=== PATIENT | female | born 1960 | race Caucasian/White ===

== ENCOUNTER 2016-04-27 22:43 | Emergency (ER) ==
--- NOTE | 2016-04-27 22:53 | ED EKG INTERP ---
EKG Interpretation - EKG Time of EKG reading by physician:: 22:52 EKG Read and Signed by:: Asim Westfall EKG Interpretation (*Must complete 3 of following elements*): Normal Rate: 85 Rhythm: Normal sinus rhythm Attestation - Scribe Verification/Attestation Scribe:: Servando Howell Acting as Scribe for:: Asim Westfall Scribe documention review:: This chart was documented by a scribe and accurately reflects the service the provider performed and the decisions made by the provider.
[2016-04-27] MEDS ORDERED: TORADOL IM ONE (23:09)
[2016-04-27 23:33] LABS: MANUAL DIFF NEEDED? NO
[2016-04-27 23:36] LABS: BASO% 0.6 % (0.0-0.8); EOS# 0.38 X1000 (0.0-0.7); EOS% 4.3 % (0.0-10.0); HEMATOCRIT 40.7 % (37.0-47.0); IMM GRAN# 0.02 X1000 (0.0-0.04); IMM GRAN% 0.2 % (0.0-0.5); LYMPH# 3.11 X1000 (1.2-3.4); LYMPH% 35.4 % (20.5-51.1); MCH 28.7 PG (27-31); MCHC 34.4 g/dL (33-37); MCV 83.6 FL (81-99); MONO# 1.12 X1000 (0.11-0.59); MONO% 12.8 % (1.7-9.3); MPV 9.2 FL (7.4-10.4); NEUT% 46.7 % (42.2-75.2); PLT 314 X1000 (130-400); RBC 4.87 XMIL (4.2-5.4)
[2016-04-27 23:48] LABS: AGAP 14; ALBUMIN 3.5 g/dL (3.5-5.0); ALKALINE PHOSPHATASE 74 U/L (32-104); BUN 16 mg/dL (8-22); CALCIUM 8.4 mg/dL (8.8-10.2); CHLORIDE 99 mmol/L (98-107); COSMO 280; GOT 25 U/L (10-30); GPT 41 U/L (10-36); POTASSIUM 3.7 mmol/L (3.5-5.1); SODIUM 136 mmol/L (136-145); TCO2 23 mmol/L (25-35); TOTAL BILIRUBIN 0.27 mg/dL (0.20-1.00); TOTAL PROTEIN 6.6 g/dL (6.3-8.3)
[2016-04-27 23:55] LABS: URINE CULTURE NEEDED? NO; URINE MICRO REVIEW NEEDED? NO; URINE SOURCE CLEAN CATCH
[2016-04-28 00:26] LABS: BILIRUBIN URINE NEGATIVE (NEGATIVE); BLOOD URINE NEGATIVE (NEGATIVE); COLOR YELLOW; GLUCOSE URINE 1000 mg/dL (NEGATIVE); LEUKOCYTES URINE NEGATIVE (NEGATIVE); NITRITE URINE NEGATIVE (NEGATIVE); PH URINE 6.5; PROTEIN URINE TRACE mg/dL (NEGATIVE); SP GRAVITY URINE 1.025; TURBIDITY URINE CLEAR (CLEAR); UROBILINOGEN URINE NORMAL (NORMAL)
[2016-04-28 00:27] LABS: UR EPITHELIAL CELLS <10 /HPF (<10); URINE BACTERIA NEGATIVE /HPF; URINE RBC <10 /HPF (<10); URINE WBC <10 /HPF (<10)
[2016-04-28] MEDS ORDERED: DECADRON IM ONE (00:33)
[2016-04-28] MEDS ORDERED: ROCEPHIN IM ONE (00:33)
[2016-04-28] MEDS ORDERED: XYLOCAINE-MPF 1% INJ ONE (00:33)
--- NOTE | 2016-04-28 00:40 | PROVIDER DOCUMENTATION ---
HPI-General Adult <James Reyes - Last Filed: 04/28/16 00:40> - General Source: patient - History of Present Illness -Gen Adult Nature of Presenting Problems: Pt is a 55 yof who presents to ER with CC of generalized bilateral upper extremity muscle aches. Pt reports that she had an URI 1 week ago and was treated with zethromax. Pt reports that she woke up this morning with bilateral pain in the joints of her upper extremities and generalized muscle aches. Pt has hx of fibromyalgia. Location of Pain/Injury: reports: upper extremity (Bilateral joint pain) Quality of Pain: reports: aching Severity: reports: mild Onset/Duration: reports: this morning Timing: reports: still present Associated Symptoms: reports: joint pain (Bilateral upper extremities), muscle aches <Servando Howell - Last Filed: 04/28/16 00:50> - General Chief Complaint: Generalized Pain Stated Complaint: CP, NECK/ARM/BACK PAIN Time Seen by Provider: 04/27/16 23:00 Allergies/Adverse Reactions: Patient Allergies Allergy/AdvReac Type Severity Reaction Status Date / Time No Known Allergies Allergy Verified 04/27/16 23:39 Home Medications: Glyburide 7.5 mg PO DAILY 08/14/14 LISINOpril [Prinivil] 10 mg PO DAILY 08/14/14 Milnacipran HCl [Savella] 25 mg PO DAILY 08/14/14 Omeprazole 20 mg PO DAILY 08/14/14 Review of Systems - Adult - REVIEW OF SYSTEMS - ADULT Constitutional: denies: chills, fever, fatique Eyes: reports: no symptoms reported Ears, Nose, Mouth & Throat: reports: no symptoms reported Cardiovascular: reports: no symptoms reported Respiratory: reports: no symptoms reported Gastrointestinal: reports: no symptoms reported Genitourinary: reports: no symptoms reported Musculoskeletal: reports: bone pain, joint pain, muscle aches, muscle weakness. denies: back pain, frequent leg cramps, joint swelling, neck pain Integumentary: reports: no symptoms reported Neurological: reports: no symptoms reported Psychiatric: reports: no symptoms reported Endocrine: reports: no symptoms reported Hematologic/Lymphatic: reports: no symptoms reported Allergic/Immunologic: reports: no symptoms reported All Other Systems: Reviewed and Negative <Servando Howell - Last Filed: 04/28/16 00:50> Past History - Adult - PAST MEDICAL HISTORY-ADULT Major Childhood Illnesses: reports: denies history Cardiovascular: reports: denies history Respiratory: reports: denies history Gastrointestinal: reports: GERD Obstetrical/Gynecological: reports: denies history Genitourinary: reports: denies history Musculoskeletal: reports: fibromyalgia Neurological: reports: denies history Psychiatric: reports: denies history Endocrine/Immune: reports: Diabetes Other Conditions: reports: other (seasonal allergies) - PRIOR SURGERIES/PROCEDURES Surgical/Procedure History: reports: - PRIOR HOSPITALIZATIONS Prior Hospitalizations: reports: for other non-related - IMMUNIZATION STATUS Childhood Immunizations: See Nurse Assessment Flu Vaccine: See Nurse Assessment - FAMILY HISTORY Family History: reviewed, not pertinent <James Reyes - Last Filed: 04/28/16 00:40> - PAST MEDICAL HISTORY-ADULT Review of Records: reports: Nursing Assessment Review, Medications Reviewed - IMMUNIZATION STATUS Childhood Immunizations: See Nurse Assessment Flu Vaccine: See Nurse Assessment <Servando Howell - Last Filed: 04/28/16 00:50> Physical Exam-General - PHYSICAL EXAM-ADULT Initial Vital Signs Reviewed: Yes - CONSTITUTIONAL General Appearance: appears well, alert, mild distress - NECK Neck: non-tender, full range of motion, supple - RESPIRATORY Respiratory: chest non-tender, lungs clear, normal breath sounds - CARDIOVASCULAR Cardiovascular: normal peripheral pulses, regular rate, rhythm - GASTROINTESTINAL (ABDOMEN) Abdominal Exam: normal bowel sounds, non tender, soft - LYMPHATIC Lymphatic: no adenopathy - MUSCULOSKELETAL Back Exam: no CVA tenderness, no vertebral tenderness Extremity: normal range of motion, non-tender, normal gait - SKIN Integumentary: normal color, normal turgor, warm/dry - NEUROLOGIC Neurologic: grossly normal, no motor/sensory deficits - PSYCHIATRIC Psych/Mental Status: normal mood/affect, normal thought content, normal thought process, oriented x 3 <Servando Howell - Last Filed: 04/28/16 00:50> Progress - PLAN OF CARE/RESULTS Progress/Plan/Lab Results: Orders Category Date Time Status CHEST-2 VIEWS [RAD] Stat Exams 04/27/16 23:08 Taken CBC WITH ELECTRONIC DIFF [HEME] Stat Lab 04/27/16 23:25 Completed COMPREHENSIVE METABOLIC PANEL [CHEM] Stat Lab 04/27/16 23:25 Completed INFLUENZA SCREEN A/B Stat Lab 04/27/16 22:51 Completed UA Reflex [URINALYSIS W/POSS RFLX CULT] [URINALYSIS] Lab 04/27/16 23:45 Completed Stat CefTRIAXONE [Rocephin] Med 04/28/16 00:33 Discontinued 1 gm IM NOW ONE Dexamethasone [Decadron] Med 04/28/16 00:33 Discontinued 10 mg IM NOW ONE Ketorolac [Toradol] Med 04/27/16 23:09 Discontinued 60 mg IM NOW ONE Lidocaine 1% Pf [Xylocaine-Mpf 1%] Med 04/28/16 00:33 Discontinued 5 ml INJ NOW ONE EKG [EKG] Stat Ther 04/27/16 22:46 Ordered Laboratory Tests 04/27/16 04/27/16 04/27/16 23:25 23:25 23:45 WBC 8.78 RBC 4.87 Hgb 14.0 Hct 40.7 MCV 83.6 MCH 28.7 MCHC 34.4 RDW Std Deviation 13.1 Plt Count 314 MPV 9.2 Immature Gran % (Auto) 0.2 Neut % (Auto) 46.7 Lymph % (Auto) 35.4 [place] % (Auto) 12.8 H Eos % (Auto) 4.3 Baso % (Auto) 0.6 Immature Gran # (Auto) 0.02 Neut # (Auto) 4.10 Lymph # (Auto) 3.11 [place] # (Auto) 1.12 H Eos # (Auto) 0.38 Baso # (Auto) 0.05 Sodium 136 Potassium 3.7 Chloride 99 Carbon Dioxide 23 L Anion Gap 14 BUN 16 Creatinine 0.6 Estimated GFR/1.73 m2 > 60 BUN/Creatinine Ratio 27 Glucose 219 H Calculated Osmolality 280 Calcium 8.4 L Total Bilirubin 0.27 AST 25 ALT 41 H Alkaline Phosphatase 74 Total Protein 6.6 Albumin 3.5 Globulin 3.1 Albumin/Globulin Ratio 1.1 Urine Source CLEAN CATCH Urine Color YELLOW Urine Turbidity CLEAR Urine pH 6.5 Ur Specific [place] 1.025 Urine Protein TRACE A Ur Glucose (Stick) 1000 A Ur Ketones (Stick) NEGATIVE Urine Blood NEGATIVE Urine Nitrite NEGATIVE Urine Bilirubin NEGATIVE Urobilinogen Dipstick NORMAL Urine Leukocytes NEGATIVE Urine WBC (Auto) <10 Urine RBC (Auto) <10 U Epithel Cells (Auto) <10 Urine Bacteria (Auto) NEGATIVE Vital Signs - 24 hr 04/27/16 22:52 Temperature 98.2 F Pulse Rate 81 Respiratory 16 Rate Blood Pressure 179/75 O2 Sat by Pulse 100 Oximetry - XRAY 1 XRAY Study: Chest Impression: Normal XRAY Interpretation: elma <James Reyes - Last Filed: 04/28/16 00:40> - PLAN OF CARE/RESULTS Progress/Plan/Lab Results: Vital Signs - 24 hr 04/27/16 22:52 Temperature 98.2 F Pulse Rate 81 Respiratory 16 Rate Blood Pressure 179/75 O2 Sat by Pulse 100 Oximetry Orders Category Date Time Status CHEST-2 VIEWS [RAD] Stat Exams 04/27/16 23:08 Taken CBC WITH ELECTRONIC DIFF [HEME] Stat Lab 04/27/16 23:25 Completed COMPREHENSIVE METABOLIC PANEL [CHEM] Stat Lab 04/27/16 23:25 Completed INFLUENZA SCREEN A/B Stat Lab 04/27/16 22:51 Completed UA Reflex [URINALYSIS W/POSS RFLX CULT] [URINALYSIS] Lab 04/27/16 23:45 Completed Stat 0.9% Sodium Chloride Inj [Ns] 1,000 ml Med 04/28/16 00:43 Active IV 999 mls/hr CefTRIAXONE [Rocephin] Med 04/28/16 00:33 Discontinued 1 gm IM NOW ONE Dexamethasone [Decadron] Med 04/28/16 00:33 Discontinued 10 mg IM NOW ONE Ketorolac [Toradol] Med 04/27/16 23:09 Discontinued 60 mg IM NOW ONE Lidocaine 1% Pf [Xylocaine-Mpf 1%] Med 04/28/16 00:33 Discontinued 5 ml INJ NOW ONE EKG [EKG] Stat Ther 04/27/16 22:46 Ordered Laboratory Tests 04/27/16 04/27/16 04/27/16 23:25 23:25 23:45 WBC 8.78 RBC 4.87 Hgb 14.0 Hct 40.7 MCV 83.6 MCH 28.7 MCHC 34.4 RDW Std Deviation 13.1 Plt Count 314 MPV 9.2 Immature Gran % (Auto) 0.2 Neut % (Auto) 46.7 Lymph % (Auto) 35.4 [place] % (Auto) 12.8 H Eos % (Auto) 4.3 Baso % (Auto) 0.6 Immature Gran # (Auto) 0.02 Neut # (Auto) 4.10 Lymph # (Auto) 3.11 [place] # (Auto) 1.12 H Eos # (Auto) 0.38 Baso # (Auto) 0.05 Sodium 136 Potassium 3.7 Chloride 99 Carbon Dioxide 23 L Anion Gap 14 BUN 16 Creatinine 0.6 Estimated GFR/1.73 m2 > 60 BUN/Creatinine Ratio 27 Glucose 219 H Calculated Osmolality 280 Calcium 8.4 L Total Bilirubin 0.27 AST 25 ALT 41 H Alkaline Phosphatase 74 Total Protein 6.6 Albumin 3.5 Globulin 3.1 Albumin/Globulin Ratio 1.1 Urine Source CLEAN CATCH Urine Color YELLOW Urine Turbidity CLEAR Urine pH 6.5 Ur Specific [place] 1.025 Urine Protein TRACE A Ur Glucose (Stick) 1000 A Ur Ketones (Stick) NEGATIVE Urine Blood NEGATIVE Urine Nitrite NEGATIVE Urine Bilirubin NEGATIVE Urobilinogen Dipstick NORMAL Urine Leukocytes NEGATIVE Urine WBC (Auto) <10 Urine RBC (Auto) <10 U Epithel Cells (Auto) <10 Urine Bacteria (Auto) NEGATIVE <Servando Howell - Last Filed: 04/28/16 00:50> Departure - Departure Time of Disposition Order: 00:38 Certified Medical Emergency: Emergent <James Reyes - Last Filed: 04/28/16 00:40> - Departure Time of Disposition Order: 00:50 Certified Medical Emergency: Emergent <Servando Howell - Last Filed: 04/28/16 00:50> - Departure DIAGNOSIS: Hyperglycemia, Muscular aches URI (upper respiratory infection) Qualifiers: URI type: unspecified URI Qualified Code(s): J06.9 - Acute upper respiratory infection, unspecified Disposition: HOME 01 Condition: Stable Additional Instructions: ED Follow Up Instructions: You have been treated by a care provider in the Emergency Department. These instructions are being provided to you so you can have an understanding of how to care for yourself upon discharge. Upon discharge from the Emergency Department, you are responsible for making arrangements for follow-up care by a physician of your choice. Take all prescribed medications as directed. Return to the Emergency Department immediately for any new or worsening symptoms. You may call the Physician Referral phone number at [phone] to obtain a list of Physicians who are taking new patients. Prescriptions: Amoxicillin/Pot Clavulanate [Augmentin] 875 mg PO Q12HR #14 tablet Cyclobenzaprine [Flexeril] 10 mg PO TID #20 tablet Ibuprofen [Motrin] 800 mg PO Q8H PRN PRN #20 tablet PRN Reason: inflammation Omeprazole [Prilosec] 20 mg PO DAILY@0700 #20 capsule Referrals: Alphonso Worley MD [Primary Care Provider] - Call for Appoint. -1 week Attestation - Physician/ Mid-level Attestation Patient care was provided by Mid-level provider (CAREER RESOURCE SPECIALIST/PA):: Yes Mid-level provider:: James Reyes Mid-level documentation review:: The Mid-level provider documentation, treatment plan and medical decision making was reviewed by the physician who agrees with all treatment and medical decision making by the MLP. <James Reyes - Last Filed: 04/28/16 00:40> - Scribe Verification/Attestation Scribe:: Servando Howell Acting as Scribe for:: Asim Westfall Scribe documention review:: This chart was documented by a scribe and accurately reflects the service the provider performed and the decisions made by the provider. <Servando Howell - Last Filed: 04/28/16 00:50> Physician Attestation
[2016-04-28] MEDS ORDERED: NS 1,000 ML IV ONE (00:43)
[2016-04-28] MEDS ORDERED: ATIVAN PO ONE (00:52)
[2016-04-28 01:33] VITALS: BP 157/65
--- NOTE | 2016-04-28 05:39 | EKG Report ---
Test Performed on : 04/27/2016 10:49:23 PM Test Reason : cp Blood Pressure : / mmHG Vent. Rate : 085 BPM Atrial Rate : 085 BPM P-R Int : 128 ms QRS Dur : 088 ms QT Int : 380 ms P-R-T Axes : 064 006 028 degrees QTc Int : 452 ms Normal sinus rhythm. Normal ECG When compared with ECG of 14-AUG-2014 22:49, No significant change was found Unconfirmed Result
--- NOTE | 2016-04-28 08:10 | Diag Imaging Result Document ---
PROCEDURE NAME: CHEST-2 VIEWS - 04/27/2016 FRONTAL AND LATERAL CHEST, THREE VIEWS: COMPARISON: Compared to 08/14/2014. FINDINGS: The lungs are well expanded. The heart is not enlarged. There are no infiltrates. No pleural effusions. The vessels are no distended. IMPRESSION: 1. No pneumonia. 2. Questionable developing tiny nodule in the mid left lung.
== END 2016-04-28 01:31 | disposition home or self-care (01) ==
LOC: ED 22:43
DX: E11.65 Type 2 diabetes mellitus with hyperglycemia (principal); J06.9 Acute upper respiratory infection, unspecified; M79.1 Myalgia; M62.81 Muscle weakness (generalized); M79.602 Pain in left arm; M79.601 Pain in right arm; M25.50 Pain in unspecified joint; K21.9 Gastro-esophageal reflux disease without esophagitis; M79.7 Fibromyalgia; J30.2 Other seasonal allergic rhinitis; Z79.899 Other long term (current) drug therapy
CPT/HCPCS: 36415; 71020; 80053; 81001; 85025; 87804; 93005; 96372; J0696; J1885